=== PATIENT | female | born 1985 | race Caucasian/White ===

== ENCOUNTER → 2019-11-19 | Outpatient (CLI) | payer OTHER | LOC: MC.RAD 09:27 | DX: N63.20 Unspecified lump in the left breast, unspecified quadrant (principal) | CPT/HCPCS: G0279 ==

== ENCOUNTER → 2020-05-22 | Outpatient (CLI) | payer OTHER | LOC: MC.RAD 08:56 | DX: N63.20 Unspecified lump in the left breast, unspecified quadrant (principal) ==

== ENCOUNTER → 2020-11-13 | Outpatient (CLI) | payer OTHER | LOC: MC.RAD 14:00 | DX: N63.20 Unspecified lump in the left breast, unspecified quadrant (principal) ==

== ENCOUNTER → 2020-11-21 | Outpatient (CLI) | payer OTHER | LOC: COL.RAD 10:23 | DX: F45.8 Other somatoform disorders (principal); R09.89 Other specified symptoms and signs involving the circulatory and respiratory systems ==